=== PATIENT | male | born 2000 | race Hispanic/Latino ===

== ENCOUNTER 2021-05-06 14:04 | Emergency (ER) | payer OTHER ==
[~2021-05-06] VITALS: Ht 172.7 cm; Wt 80.0 kg
[2021-05-06] MEDS ORDERED: CORTISPORIN OTI10 ML AS (14:58)
[2021-05-06 15:10] VITALS: BP 120/70
== END 2021-05-06 15:10 | disposition home or self-care (01) ==
LOC: ED 14:04
DX: H60.92 Unspecified otitis externa, left ear (principal)

== ENCOUNTER 2021-09-25 13:53 | Emergency (ER) | payer OTHER ==
[~2021-09-25] VITALS: Ht 172.7 cm; Wt 100.0 kg
[~2021-09-25 13:53] MED LIST: CORTISPORIN OTI10 ML AS
[2021-09-25 15:44] VITALS: BP 121/79
== END 2021-09-25 15:44 | disposition home or self-care (01) ==
LOC: ED 13:53
DX: M54.6 Pain in thoracic spine (principal); M54.50 Low back pain, unspecified